=== PATIENT | female | born 2005 | race Hispanic/Latino ===

== ENCOUNTER 2025-04-15 17:04 | Emergency (ER) | payer OTHER ==
[~2025-04-15] VITALS: Ht 154.9 cm; Wt 99.8 kg
--- NOTE | 2025-04-15 17:21 | ERN ---
ED Note History of Present Illness Stated Complaint: ABDOMINAL PAIN Chief Complaint: Abdominal Pain Time Seen by MD: 17:06 Dictation: PATIENT IS A 19-YEAR-OLD FEMALE COMING IN TODAY WITH COMPLAINTS OF RIGHT UPPER QUADRANT PAIN WITH NAUSEA VOMITING ONSET WAS YESTERDAY. SHE STATES SHE STILL HAS HAD HER GALLBLADDER, WENT TO A LOCAL URGENT CARE TODAY AND HAD LABS DRAWN WITHOUT THE BENEFIT OF AN ULTRASOUND. SHE STATES LABS SHE HAD AN ELEVATED LEUKOCYTOSIS AND WHITE COUNT WAS ADVISED TO COME TO THE HOSPITAL HAVE AN EVALUATION FOR CHOLEDOCHOLITHIASIS OR CHOLECYSTITIS. Allergies: Coded Allergies: No Known Drug Allergies (Unverified Allergy, Unknown, 04/15/25) Past Medical History Past Medical History: No Pertinent History Additional Past Medical Hx: denies pmhx Surgical History: Other Surgical History Other: left femur fx LMP: Apr 04, 2025 RN Note Reviewed/Agreed w/PFSH: Yes Review of System Dictation CONSTITUTIONAL: NEGATIVE EXCEPT FOR HPI HEAD/FACE: NEGATIVE EXCEPT FOR HPI EENT: NEGATIVE EXCEPT FOR HPI RESPIRATORY: NEGATIVE EXCEPT FOR HPI GASTROINTESTINAL/ABDOMINAL: NEGATIVE EXCEPT FOR HPI RIGHT UPPER QUADRANT PAIN WITH NAUSEA VOMITING GENITOURINARY: NEGATIVE EXCEPT FOR HPI MUSCULOSKELETAL: NEGATIVE EXCEPT FOR HPI INTEGUMENTARY: NEGATIVE EXCEPT FOR HPI NEUROLOGICAL/PSYCH: NEGATIVE EXCEPT FOR HPI HEMATOLOGIC/LYMPHATIC: NEGATIVE EXCEPT FOR HPI ALL SYSTEMS NEGATIVE, EXCEPT NOTED ABOVE. 13 POINT REVIEW OF SYSTEMS ASSESSED AND ALL NEGATIVE EXCEPT FOR ABOVE. Initial Vital Sign VS Vital Signs Date Time Temp Pulse Resp B/P (MAP) Pulse Ox O2 Delivery O2 Flow Rate FiO2 04/15/25 17:05 98.1 67 16 167/83 98 Room Air 0 04/15/25 17:08 21 Physical Exam Dictation VITAL SIGNS REVIEWED GENERAL APPEARANCE: ALERT, ORIENTED X 3, MODERATE ACUTE DISTRESS, WELL DEVELOPED, NOURISHED. MODERATELY OBESE HEAD AND FACE: NON-TRAUMATIC. EYES: PERRL, PINK CONJUNCTIVAS, EYELID NO TRAUMA, ANTERIOR CHAMBER WITH ARCUS SENILIS. EARS: PINNAS INTACT AND NO SIGNS OF TRAUMA OR ERYTHEMA EAR CANALS CLEAR AND NO DISCHARGE TM NO ERYTHEMA NOSE: NO DISCHARGE, NO BLEEDING. OROPHARYNX: MOUTH NORMAL, TONGUE PINK, PHARYNX CLEAR,NO ERYTHEMA, TONSILS NO EXUDATES, NO ABSCESSES NOTED, MUCOUS MEMBRANE MOIST NECK: SUPPLE, NON-TENDER, NO THYROMEGALY, NO MASSES, NO JVD, NO BRUITS BREAST:DEFERRED CHEST:NO TENDERNESS, NO CREPITUS, NO PARADOXICAL MOVEMENT, NO RETRACTIONS LUNGS:CLEAR, WELL-VENTILATED, SYMMETRIC, NO RALES, NO WHEEZING, NO RHONCHI, NO STRIDOR, GOOD BREATH SOUNDS BILATERALLY HEART: REGULAR RATE, REGULAR RHYTHM, NO MURMUR, NO GALLOPS VASCULAR: NO PERIPHERAL EDEMA, ABDOMEN: SOFT, POSITIVE BOWEL SOUNDS, NONDISTENDED, NO GUARDING, RIGHT UPPER QUADRANT PAIN WITH POSITIVE ERNST'S SIGN. RECTAL: DEFERRED GENITAL: DEFERRED NEUROLOGICAL: NORMAL SPEECH, MOTOR FUNCTION INTACT, SENSORY FUNCTION INTACT MUSCULOSKELETAL: NECK NONTENDER, FULL RANGE OF MOTION, BACK NONTENDER, FULL RANGE OF MOTION, EXTREMITIES: NONTENDER, FULL RANGE OF MOTION SKIN: COLOR PINK, DRY, NO TURGOR, NO RASH, NO LACERATIONS, NO ABRASIONS, NO CONTUSIONS. LYMPHATIC: DEFERRED Results (Laboratory/Radiology) Laboratory/Radiology Laboratory Tests Test 04/15/25 17:31 04/15/25 17:42 Urine Color YELLOW (YELLOW) Urine Appearance CLOUDY (CLEAR) H Urine pH 7.0 (5.0-8.0) Urine Specific [place] 1.036 (1.001-1.031) Urine Protein 50 mg/dL (NEGATIVE) H Urine Glucose (UA) NEGATIVE mg/dL (NEGATIVE) Urine Ketones 150 mg/dL (NEGATIVE) H Urine Occult Blood NEGATIVE (NEGATIVE) Urine Nitrate NEGATIVE (NEGATIVE) Urine Bilirubin NEGATIVE mg/dL (NEGATIVE) Urine Urobilinogen 0.2 mg/dL (0.2-1.0) Urine Leukocyte Esterase 75 Raquel/uL (NEGATIVE) H Urine RBC 6-10 /HPF (0-1) H Urine WBC 11-25 /HPF (0-1) H Urine Squamous Epithelial Cells FEW /HPF (0-2) Urine Bacteria RARE /HPF (None Seen) White Blood Count 18.3 K/uL (4.8-10.8) H Red Blood Count 4.44 MIL/uL (4.00-5.50) Hemoglobin 13.2 g/dL (12.0-16.0) Hematocrit 38.6 % (36-48) Mean Corpuscular Volume 86.9 fL (80-100) Mean Corpuscular Hemoglobin 29.7 pg (27.0-33.0) Mean Corpuscular Hemoglobin Concent 34.2 g/dL (32.0-36.0) Red Cell Distribution Width 13.4 % (11.0-15.5) Platelet Count 302 K/uL (130-400) Mean Platelet Volume 8.9 fL (7.5-10.5) Immature Granulocyte % (Auto) 0.5 % (0-1) Neutrophils (%) (Auto) 92.1 % (40.0-77.0) H Lymphocytes (%) (Auto) 4.6 % (21.0-51.0) L Monocytes (%) (Auto) 2.7 % (3.0-13.0) L Eosinophils (%) (Auto) 0.0 % (0.0-8.0) Basophils (%) (Auto) 0.1 % (0.0-5.0) Neutrophils # (Auto) 16.8 K/uL (1.8-7.7) H Lymphocytes # (Auto) 0.8 K/uL (1.0-4.8) L Monocytes # (Auto) 0.5 K/uL (0.1-1.0) Eosinophils # (Auto) 0.00 K/uL (0.00-0.70) Basophils # (Auto) 0.02 K/uL (0.00-0.20) Absolute Immature Granulocyte (auto 0.09 K/uL (0-1) Nucleated Red Blood Cells 0.0 % (0.0-0.19) White Cell Morphology Comment See comments Sodium Level 139 mmol/L (136-145) Potassium Level 3.7 mmol/L (3.5-5.1) Chloride Level 102 mmol/L (101-111) Carbon Dioxide Level 25 mmol/L (21-32) Blood Urea Nitrogen 13 mg/dL (7-18) Creatinine 0.7 mg/dL (0.5-1.0) Glomerular Filtration Rate Calc 126 mL/min (>90) Random Glucose 125 mg/dL (70-105) H Total Calcium 9.7 mg/dL (8.5-10.1) Total Bilirubin 0.4 mg/dL (0.2-1.0) Aspartate Amino Transf (AST/SGOT) 14 U/L (10-37) Alanine Aminotransferase (ALT/SGPT) 22 U/L (12-78) Alkaline Phosphatase 60 U/L (50-136) Total Protein 8.3 g/dL (6.0-8.3) Albumin 4.4 g/dL (3.5-5.0) Lipase 34 U/L (16-77) Human Chorionic Gonadotropin, Quant 0 mIU/mL (0-5) 1730/ULTRASOUND DEMONSTRATES FATTY LIVER MULTIPLE MILESTONES IN GALLBLADDER, GALLBLADDER WALL 2 MM COMMON BILE DUCT 3 MM NO PERICHOLECYSTIC FLUID Labs Reviewed?: Yes ED Course ED Course Orders Procedure Category Date Status Time Cbc With Differential LAB 04/15/25 Complete 17:09 Comprehensive LAB 04/15/25 Complete Metabolic Panel 17:09 Hcg,Quantitative LAB 04/15/25 Complete 17:09 Us Abdominal Ruq\Ltd US 04/15/25 Resulted 17:09 0.9%Nacl 1000ml (Ns PHA 04/15/25 Complete 1000ml) 17:30 Morphine 2mg Syg PHA 04/15/25 Complete (Morphine 2mg Syg) 17:30 Ondansetron 4mg Inj PHA 04/15/25 Complete (Zofran 4mg Inj) 17:30 Lipase LAB 04/15/25 Complete 17:09 Urinalysis Profile LAB 04/15/25 Complete 18:33 Ct Abdomen/Pelvis CT 04/15/25 Resulted W/Contrast 18:40 Culture Urine VY 04/15/25 In Process 18:49 Iohexol (Omnipaque) PHA 04/15/25 Complete 20:05 Current Medications Medications (Trade) Dose Ordered Sig/Wyatt Route PRN Reason Start Time Stop Time Status Last Admin Dose Admin Iohexol (Omnipaque) 75 ml STK-MED ONCE IV 04/15/25 20:05 04/15/25 20:06 DC Morphine Sulfate (morPHINE 2MG SYG) 2 mg ONCE ONCE IVP 04/15/25 17:30 04/15/25 17:31 DC Ondansetron HCl (zoFRAN 4MG INJ) 4 mg ONCE ONCE IVP 04/15/25 17:30 04/15/25 17:31 DC 04/15/25 19:40 Sodium Chloride 1,000 ml @ 0 mls/hr ONCE ONCE IV 04/15/25 17:30 04/15/25 17:31 DC 04/15/25 19:41 Vital Signs Date Time Temp Pulse Resp B/P (MAP) Pulse Ox O2 Delivery O2 Flow Rate FiO2 04/15/25 20:53 98.2 75 15 138/78 100 Room Air* 0 21 04/15/25 19:11 98.2 92 16 144/83 100 Room Air* 0 04/15/25 17:08 98.1 67 16 167/83 98 Room Air* 0 04/15/25 17:05 98.1 67 16 167/83 98 Room Air 0 2054/SPOKE WITH TAYLOR IN RADIOLOGY AND HE SAID CAT SCAN WAS UPLOADED FOR THE DOCTORS TO BE READ AT 20:11. I CALLED [facility] AND SPOKE WITH JAIME SHE SAID SHE WOULD HAVE THE CT RESULTS EXPEDITED SOON POSSIBLE 2111 SPOKE WITH PATIENT AND HER DAUGHTER AT LENGTH REGARDING CT FINDINGS ULTRASOUND AND LABS. THEY ARE AWARE THAT PATIENT HAS BILIARY COLIC WITH STONES AND A RIGHT OVARIAN CYST. LEUKOCYTOSIS IS PROBABLY AN INCIDENTAL FINDING DUE TO PATIENT'S VITILIGO AND SHE STATES MY WHITE BLOOD CELLS ARE ALWAYS HIGH. ALL QUESTIONS ANSWERED Medical Decision Making MDM MDM: DIFFERENTIAL DIAGNOSIS: CHOLEDOCHOLITHIASIS/CHOLELITHIASIS/ACUTE CHOLECYSTITIS/APPENDICITIS/DIVERTICULITIS/ECTOPIC /UTI/ELECTROLYTE IMBALANCE/DEHYDRATION RATIONALE: TESTS CONSIDERED AND ORDERED SECONDARY TO SHARED DECISION MAKING INCLUDE: LABS/RADIOLOGY PREVIOUS OUTSIDE RECORDS REVIEWED: OLD ER VISITS. RISK OF COMPLICATION AND/OR MORBIDITY OR MORTALITY OF PATIENT MANAGEMENT: NONE MEDICATIONS-PER MEDICATION RECONCILIATION NEED FOR HOSPITALIZATION: PATIENT DOES NOT MEET CRITERIA FOR HOSPITALIZATION. NO NEED FOR EMERGENCY MAJOR/MINOR SURGERY: NO THERE ARE NO SOCIAL CONCERNS WITH THIS PATIENT. PRESCRIPTION DRUG MANAGEMENT BENTYL PRESCRIPTIONS WILL INCLUDE SYMPTOMATIC CARE PATIENT'S PRIOR EXTERNAL MEDICAL RECORDS FROM OTHER ER VISITS WERE REVIEWED BY ME INDICATED. PRIOR TESTING AND RESULTS FROM PREVIOUS VISITS WERE REVIEWED. PRIOR TESTS WERE TAKEN INTO ACCOUNT WITH MEDICAL DECISION MAKING AND RESOURCE UTILIZATION, INDEPENDENT HISTORIAN/HISTORIANS WERE USED TO OBTAIN COMPLETE MEDICAL HISTORY. I INDEPENDENTLY INTERPRETED THE TEST THAT WERE PERFORMED, RESULTS WERE REVIEWED BY ME AND CONSIDERED FINDINGS ON RADIOLOGY IF ORDERED. MEDICAL MANAGEMENT AND EXAMINATION INTERPRETATION DISCUSSIONS WERE HAD BY ME WITH OTHER QUALIFIED HEALTHCARE PROFESSIONALS INDICATED FOR THE PATIENT'S CARE. DX & DISP Disposition: Discharge Departure Impression: Primary Impression: Cholelithiasis Additional Impressions: Biliary colic, Right ovarian cyst, Leukocytosis Condition: Stable Scripts Dicyclomine HCl (Bentyl) 20 Mg Tab 20 MG PO Q6HPRN PRN for ABDOMINAL PAIN, #30 TAB Prov: JENNIFER SHELL ROLLER PNEUMATIC 04/15/25 Additional Instructions: FOLLOW-UP WITH PRIMARY CARE PROVIDER IN 1 TO 2 DAYS. TAKE MEDICATIONS DIRECTED HERE IN THE EMERGENCY ROOM. OKAY TO CONTINUE HOME MEDICATIONS UNLESS OTHERWISE DISCUSSED DURING YOUR VISIT IN THE EMERGENCY ROOM TODAY. RETURN TO YOUR NEAREST EMERGENCY ROOM IF SYMPTOMS WORSEN OR IF THERE IS NO IMPROVEMENT. CALL 911 IF YOU NEED IMMEDIATE ASSISTANCE. TAKE TYLENOL OR MOTRIN IGOT-OJV-YSLECUI NEEDED AND IF NO CONTRAINDICATIONS ARE PRESENT. INCREASE ORAL HYDRATION. A WOUND CULTURE OR URINE CULTURE WAS ORDERED HERE IN THE EMERGENCY ROOM DEPARTMENT PLEASE FOLLOW-UP WITH PRIMARY CARE PROVIDER AND ADVISE THEM TO GET REPEAT PORTS FROM OUR FACILITY. IF YOU HAD ANY BARRIE WRAP/SPLINTS THAT WERE APPLIED HERE, PLEASE DO NOT REMOVE THEM UNTIL YOU SEE YOUR PRIMARY CARE OR SPECIALTY. FOLLOW A LOW-FAT DIET. TAKE BENTYL NEEDED FOR RIGHT UPPER QUADRANT PAIN. FOLLOW UP WITH THE SURGEON NEEDED IN THE NEXT 1-2 DAYS, CALL FOR AN APPOINTMENT. Referrals: SELF,REFERRAL (PCP) TANESHA WRIGHT MD Time of Disposition: 21:15 I have reviewed the case, and I agree with, Diagnosis and Plan JENNIFER SHELL NP Apr 15, 2025 17:21
[2025-04-15 17:48] LABS: IMMATURE GRANULOCYTE ABSOLUTE 0.09 K/uL (0-1); NUCLEATED RED BLOOD CELLS 0.0 % (0.0-0.19); PLATELET COUNT (AUTO) 302 K/uL (130-400); RED BLOOD CELL COUNT(AUTO) 4.44 MIL/uL (4.00-5.50); RED CELL DISTRIBUTION WIDTH 13.4 % (11.0-15.5); WHITE BLOOD COUNT (AUTO) 18.3 K/uL (4.8-10.8)
[2025-04-15 18:13] LABS: CREATININE 0.7 mg/dL (0.5-1.0); GLOMERULAR FILTR. RATE CALC 126.0 mL/min (>90); GLUCOSE,RANDOM 125.0 mg/dL (70-105); SODIUM SERUM 139.0 mmol/L (136-145); UREA NITROGEN, BLOOD 13.0 mg/dL (7-18)
--- NOTE | 2025-04-15 18:14 | HMCIMG ---
Exam: Right upper quadrant ultrasound. History: Abdominal pain Technique: Static grayscale and color Doppler images are submitted. Findings: The liver is normal in size and contour it measures 14.6 cm in greatest dimension. There is diffuse abnormal increased echogenicity throughout. Hepatopetal flow is demonstrated within the portal vein. No discrete mass or intra-hepatic biliary ductal dilatation. The visualized portions of the pancreas are unremarkable. The tail is not well seen due to overlying bowel gas. There are multiple small gallstones. There is no gallbladder wall thickening, viktoriya-cholecystic fluid, or sonographic Crooks sign. The common bile duct measures 3.0 mm in diameter. The right kidney is normal in size, contour and echotexture. It measures 9.2 cm in greatest sagittal dimension. There is no hydronephrosis, nephrolithiasis or viktoriya-nephric fluid. No free fluid is present within the right upper quadrant. Impression: Cholelithiasis without sonographic evidence of acute cholecystitis. Fatty liver /Jack
[2025-04-15 18:24] LABS: ASPARTATE AMINOTRANSFERASE 14.0 U/L (10-37); HCG,QUANTITATIVE 0.0 mIU/mL (0-5); TOTAL PROTEIN, SERUM 8.3 g/dL (6.0-8.3)
[2025-04-15 18:48] LABS: APPEARANCE,URINE CLOUDY (CLEAR); GLUCOSE, URINE (UA) NEGATIVE (NEGATIVE); LEUKOCYTE ESTERASE ,URINE 75 Leu/uL (NEGATIVE); NITRATE,URINE NEGATIVE (NEGATIVE); OCCULT BLOOD,URINE NEGATIVE (NEGATIVE)
[2025-04-15 18:49] LABS: ADD UA MICROSCOPIC YES
[2025-04-15 18:56] LABS: SQUAMOUS EPITHELIAL CELL,UR FEW /HPF (0-2)
[2025-04-15] MEDS: 0.9%NACL 1000ML 1,000 ML IV ONE (19:41)
[2025-04-15] MEDS ORDERED: IOHEXOL-350 75 ML VIAL IV ONE (20:05)
--- NOTE | 2025-04-15 20:59 | HMCIMG ---
EXAM: CT Abdomen and Pelvis with IV contrast. CLINICAL HISTORY: Patient presents with viktoriya-umbilical and right lower quadrant pain and tenderness. TECHNIQUE: Axial computed tomography images of the abdomen and pelvis with intravenous contrast. CONTRAST: With intravenous contrast. COMPARISON: Ultrasound abdomen dated 04/16/25. FINDINGS: LUNG BASES: The lung bases appear clear. No pleural effusions are seen. LIVER: Unremarkable. GALLBLADDER AND BILE DUCTS: A small calculus at the neck of the gallbladder measures 2.8 mm. A small calculus is impacted at the junction of the gallbladder neck and the cystic duct. The common bile duct measures 5.6 mm in calibre. No intrahepatic ductal dilatation is evident. Sonographically noted multiple tiny gallbladder calculi are not localised in the CT study due to the partial volume effect. PANCREAS: Unremarkable. SPLEEN: Unremarkable. ADRENAL GLANDS: Unremarkable. KIDNEYS, URETERS, AND BLADDER: Normal appearance of the kidneys. No renal calculi obstruction. STOMACH AND BOWEL: Unremarkable appearance of the stomach and bowel. No evidence of bowel obstruction. No evidence suggesting enteritis or colitis. APPENDIX: The long, tortuous appendix in the right iliac fossa measures 6.7 mm in calibre. No obvious viktoriya-appendiceal inflammatory changes/ fluid collection. No free fluid. No free air. LYMPH NODES: No evidence of intra-abdominal lymphadenopathy. REPRODUCTIVE: Small cystic areas within the ovaries. The larger one on the right side measures 3 cm x 2.4 cm, likely to represent a follicle or follicular cyst. On the left side, it measures 2.4 cm x 2.2 cm. VASCULATURE: Unremarkable. BONES: Bone structures are intact. No acute osseous pathology is evident. IMPRESSION: Cholelithiasis with questionable acute cholecystitis, recommend ultrasound of the gallbladder for further evaluation. No acute appendicitis is evident. Incidental cystic lesion within the ovaries, likely a mature follicle or follicular cyst within the right ovary. No bowel obstruction or colitis. No renal calculi or obstruction. /[place]
[2025-04-15] MEDS ORDERED: DICY20TA2 PO (21:16)
[2025-04-15 21:40] VITALS: BP 132/75; PULSE 78; RESP 16; TEMP 98.2; O2SAT 99
== END 2025-04-15 21:41 | disposition home or self-care (01) ==
LOC: EDH 17:04
DX: K80.70 Calculus of gallbladder and bile duct without cholecystitis without obstruction (principal); N83.201 Unspecified ovarian cyst, right side; D72.829 Elevated white blood cell count, unspecified; Z98.890 Other specified postprocedural states
CPT/HCPCS: 99285; 74177; 96374; 76705; 96361; 80053; 84702; 83690; 85025; 87086; 81001; 36415; J7030; J2405; Q9967